=== PATIENT | female | born 1980 ===

== ENCOUNTER → 2018-05-16 | Day surgery (SDC) | payer MEDICAID ==
[2018-05-15 12:13] LABS: Basophils # (auto) 0.1 uL; Hemoglobin 13.3 g/dL (12.2-16.2); Lymphocytes # (auto) 2.3 uL; Monocytes # (auto) 0.7 uL; Neutrophils # (auto) 5.8 uL
[2018-05-15 12:16] LABS: Basophils % (auto) 0.8 % (0.0-2.0); Eosinophils # (auto) 0.2 uL; Eosinophils % (auto) 2.5 % (0.0-7.0); Hematocrit 39.5 % (36.0-46.0); Lymphocytes % (auto) 25.3 % (10.0-50.0); Mean Corpuscular Hgb Conc. 33.6 g/dL (32.0-36.0); Monocytes % (auto) 7.7 % (0.0-12.0); Neutrophils % (auto) 63.7 % (37.0-80.0); Platelet Count (auto) 232 10^3/uL (140-450); Red Blood Cells 3.69 10^6/uL (4.0-5.20); Red Cell Distribution Width 13.7 % (11.8-14.3); White Blood Cell 9.1 10^3/uL (4.4-10.8)
[2018-05-15 12:26] LABS: Urine Bacteria NONE SEEN /hpf (None Seen); Urine Blood Negative /uL (Negative); Urine Mucus FEW (None Seen); Urine Specific Gravity 1.022 (1.001-1.035); Urine WBC 38 /hpf (0 - 5)
[2018-05-15 12:34] LABS: Partial Thromboplastin Time 21.9 sec (23.78-33.04); Prothrombin Time 10.7 sec (9.27-12.13)
[2018-05-15 12:51] LABS: Albumin 2.6 g/dL (3.4-5.0); BUN/Creatinine Ratio 6.6; Bilirubin, Total 0.8 mg/dL (0.2-1.0); Calcium 8.1 mg/dL (8.5-10.1); Potassium 3.4 mmol/L (3.5-5.1); Total Protein 6.2 g/dL (6.4-8.2)
[~2018-05-16] VITALS: Ht 160 cm; Wt 81.6 kg
[~2018-05-16] MED LIST: BUPIVACAINE 0.75% INJ 10ML MPV SDV IJ ONE; GABA300C10 PO; METOCLOPRAMIDE HCL 5MG/ml INJ 2ml VIAL IV ONE; MIDAZOLAM HCL 1MG/1ML-2 ML VIAL ONE; NEOMYCIN-BACITRACIN-POLYM 15GM TOP OINT TOP ONE; ONDANSETRON HCL 4 MG/2 ML VIAL ONE; PROPOFOL 10 MG/ML 20 ML IV ONE; fentaNYL CITRATE 100 MCG/2 ML VL IV ONE; fentaNYL CITRATE 100 MCG/2 ML VL ONE
[2018-05-16 14:26] VITALS: BP 99/67
== END | disposition home or self-care (01) ==
LOC: SUR 09:51
PROVIDERS: ATTEND Podiatrist Foot & Ankle Surgery
DX: M72.2 Plantar fascial fibromatosis (principal); E66.9 Obesity, unspecified; Z88.5 Allergy status to narcotic agent; Z88.1 Allergy status to other antibiotic agents; Z68.31 Body mass index [BMI] 31.0-31.9, adult; Z98.51 Tubal ligation status; Z98.84 Bariatric surgery status; Z79.899 Other long term (current) drug therapy
CPT/HCPCS: 28060; J3010; Q4137; 36415; 80053; 81001; 84702; 85025; 85610; 85730; J2250; J2405; J2704; J3490